=== PATIENT | male | born 1985 | race Caucasian/White ===

== ENCOUNTER 2023-05-14 16:33 | Inpatient (IN) | payer MEDICARE, SELFPAY ==
[2023-05-14 16:42] VITALS: BP 135/78; PULSE 82; RESP 18; TEMP 36.9; O2SAT 100; BMI 25.3
--- NOTE | 2023-05-14 16:43 | ED_ITS ---
HPI - General Adult General Chief complaint: Recheck/Abnormal Lab/Rx Stated complaint: Abnormal labs/low sodium Time Seen by Provider: 05/14/23 18:00 Source: other ([facility]) Mode of arrival: ambulatory Limitations: altered mental status History of Present Illness HPI narrative: Patient mentally challenged with history of schizophrenia came from long-term for low sodium of 125. Patient had low sodium on 04/27 recheck yesterday was 125 no active complaints no change in mental status patient not drinking more water than usual no history of hyponatremia in the past patient is on Trileptal, Haldol, Cogentin and Zyprexa and Depakote Related Data Home Medications Medication Instructions Recorded Confirmed docusate sodium 100 mg capsule 200 mg PO BEDTIME 05/13/23 05/14/23 (Colace) acetaminophen 500 mg tablet 1,000 mg PO Q6H PRN PAIN OR FEVER 05/14/23 05/14/23 (Tylenol Extra Strength) benztropine 1 mg tablet 1 mg PO BID 05/14/23 05/14/23 clonazepam 0.5 mg tablet 0.5 mg PO BID 05/14/23 05/14/23 clonazepam 0.5 mg tablet 0.5 mg PO DAILY MRX1 PRN Agitation 05/14/23 05/14/23 divalproex 500 mg tablet,delayed 500 mg PO BEDTIME 05/14/23 05/14/23 release guaifenesin 100 mg/5 mL oral liquid 200 mg PO Q6H PRN Cough 05/14/23 05/14/23 haloperidol lactate 2 mg/mL oral 2 mg PO DAILY@1600 05/14/23 05/14/23 concentrate haloperidol lactate 2 mg/mL oral 4 mg PO BID 05/14/23 05/14/23 concentrate olanzapine 20 mg tablet 20 mg PO BID 05/14/23 05/14/23 oxcarbazepine 600 mg tablet 600 mg PO BID 05/14/23 05/14/23 polyethylene glycol 3350 17 gram 17 g PO BEDTIME 05/14/23 05/14/23 oral powder packet (Miralax) Allergies Allergy/AdvReac Type Severity Reaction Status Date / Time No Known Allergies Allergy Verified 05/14/23 16:41 Review of Systems 2 Review of Systems: Yes all other systems are reviewed and are negative PMFSH Past Medical History Medical History Impulsive personality disorder Anxiety Autism Schizophrenia Social History Social History Patient Tobacco Use Status: Never used Tobacco Smoked in Last 30 Days: No Use of substances other than those prescribed or required for medical reasons: No Advance Directives: No Advance Directives Information Provided: No Nutrition Risks: No Nutritional Risk Physical Exam ED Vital Signs: Vital Signs - 24 hr 05/14/23 16:42 05/14/23 18:21 05/14/23 19:44 Temperature 98.5 F 98.4 F 97.6 F Pulse Rate 82 82 95 Respiratory Rate 18 16 17 Blood Pressure 135/78 137/85 141/86 H Pulse Oximetry 100 98 100 Oxygen Delivery Method Room Air Room Air Room Air BMI result Body Mass Index 25.3 Appearance: Alert. And awake mentally challenged. No acute distress. Eyes: PERRLA, No Nystagmus ENT: Pharynx normal. Oral Mucosa moist Neck: Normal inspection. Neck supple. CVS: Normal heart rate and rhythm. Pulses normal. Respiratory: No respiratory distress. Equal air entry bilateral, no wheezing/rales/rhonchi Abdomen: Soft and nontender. Bowel sounds are present, no mass palpable, no CVA tenderness Skin: Skin warm and dry. Normal skin color. Normal skin turgor. Extremities: No lower extremity edema. No calf tenderness Neuro: Alert and awake mentally challenged. No motor deficit. No sensory deficit.No cerebellar signs , cranial nerves II-XII intact Course Course Course Narrative: RME performed by Eryn Ghosh PA-C. Patient is a 37 year old assigned male at presenting to the emergency department with low sodium. Labs ordered. Patient placed back in the waiting room pending room availability and results. Medications Administered Generic Name Dose Route Start Last Admin Trade Name Freq PRN Reason Stop Dose Admin Benztropine Mesylate 1 mg 05/14/23 21:00 05/14/23 21:32 Benztropine Mesylate 1 Mg Tablet PO 1 mg BID MARIA ESTHER Administration Clonazepam 0.5 mg 05/14/23 21:00 05/14/23 21:33 Clonazepam 0.5 Mg Tablet PO 0.5 mg BID MARIA ESTHER Administration Divalproex Sodium 500 mg 05/14/23 21:00 05/14/23 21:33 Divalproex Sodium 500 Mg Tablet.Dr PO 500 mg BEDTIME MARIA ESTHER Administration Docusate Sodium 200 mg 05/14/23 21:00 05/14/23 21:32 Docusate Sodium 100 Mg Capsule PO 200 mg BEDTIME MARIA ESTHER Administration Enoxaparin Sodium 40 mg 05/14/23 20:00 05/14/23 21:31 Enoxaparin Sodium 40 Mg/0.4 Ml Syringe SUBCUT 40 mg Q24H MARIA ESTHER Administration Haloperidol Lactate 4 mg 05/14/23 21:00 05/14/23 21:30 Haloperidol Lactate Oral Conc 10 Mg/5 Ml Oral.Conc PO 4 mg BID MARIA ESTHER Administration Olanzapine 20 mg 05/14/23 21:00 05/14/23 21:32 Olanzapine 10 Mg Tablet PO 20 mg BID MARIA ESTHER Administration Polyethylene Glycol 17 gm 05/14/23 21:00 05/14/23 21:32 Polyethylene Glycol 3350 17 Gm Powd.Pack PO 17 gm BEDTIME MARIA ESTHER Administration Sodium Chloride 3 ml 05/15/23 00:00 05/14/23 23:02 0.9 % Sodium Chloride Flush 3 Ml Syringe IVFLUSH 3 ml QSHIFT MARIA ESTHER Administration Discontinued Medications Generic Name Dose Route Start Last Admin Trade Name Freq PRN Reason Stop Dose Admin Oxcarbazepine 450 mg 05/14/23 19:59 05/14/23 21:32 Oxcarbazepine 150 Mg Tablet PO 05/14/23 20:00 450 mg ONCE ONE Administration Medical Decision Making Medical Decision Making [facility] Narrative: Patient with acute hyponatremia asymptomatic workup showed SIADH secondary to oxcarbazepine patient also on Depakote and Haldol. [place]ig[place] level is low. Will admit patient for SIADH treatment with fluid restriction Differential Diagnosis Differential Diagnoses: The differential diagnosis associated with the presentation includes Hyponatremia Admission/Observation Consideration of admission/observation: Escalation of care including admission/observation considered Consult Healthcare Provider Management of the patient was discussed with: Hospitalist Lab Data [facility] Lab Attestation statement: I reviewed the patient's lab results. 05/14/23 17:07 05/14/23 17:07 Labs: Lab Results 05/14/23 05/14/23 05/14/23 Range/Units 17:07 18:24 19:43 WBC 4.2 L (4.8-10.8) X10*3/uL RBC 3.57 L (4.60-5.80) X10*6/uL Hgb 12.4 L (14.0-18.0) g/dl Hct 34.4 L (42.0-52.0) % MCV 96.4 (80.0-98.0) fL MCH 34.7 H (27.0-33.0) pg MCHC 36.0 (31.0-36.0) g/dl RDW 10.8 L (11.0-16.0) % Plt Count 200 (160-400) X10*3/uL MPV 8.5 L (9.4-12.4) fL Immature Gran % (Auto) 0.2 (0.0-0.4) % Neut % (Auto) 61.5 (45-73) % Lymph % (Auto) 22.4 (20-40) % [place] % (Auto) 14.2 H (2-11) % Eos % (Auto) 1.0 (0-4) % Baso % (Auto) 0.7 (0-2) % Lymph # (Auto) 0.9 L (1.2-4.9) X10*3/uL [place] # (Auto) 0.6 (0.1-1.2) X10*3/uL Eos # (Auto) 0.0 (0.0-0.4) X10*3/uL Baso # (Auto) 0.0 (0.0-0.2) X10*3/uL Abs Immat Gran (auto) 0.01 (0.00-0.03) X10*3/uL Absolute Neuts (auto) 2.6 (2.0-8.3) x10*3/uL Absolute Nucleated RBC 0.000 (0.0-0.012) X10*3/uL Nucleated RBC % (auto) 0.0 (0.0-0.2) /100WBC PT 12.0 (11.1-13.3) SEC INR 1.0 (0.9-1.1) APTT 29.0 (26.0-36.4) SEC Sodium 124 L (135-145) mmol/L Potassium 3.9 (3.3-5.1) mmol/L Chloride 92 L (96-108) mmol/L Carbon Dioxide 24 (22-29) mmol/L Anion Gap 12 (12-20) BUN 11 (9-16) mg/dL Creatinine 0.74 (0.5-1.4) mg/dL Estim Creat Clear Calc 129.6 Estimated GFR > 60 Random Glucose 105 (60-115) mg/dL Osmolality 266 L (281-305) mosm/kg Calcium 9.0 (8.4-10.2) mg/dL Magnesium 2.1 (1.6-2.6) mg/dL Total Bilirubin 0.3 (0.0-1.0) mg/dL AST 17 (5-37) U/L ALT 19 (0-40) U/L Alkaline Phosphatase 66 (39-117) U/L Troponin I High Sens < 2.7 (<3.5-35.0) ng/L Total Protein 7.5 (6.5-8.0) g/dL Albumin 4.6 (3.5-5.0) g/dL TSH 0.81 (0.32-4.0) uIU/mL Urine Color Yellow Urine Appearance Clear Urine pH 8.0 (5.0-9.0) Ur Specific [place] 1.015 (1.005-1.025) Urine Protein Negative (Neg-Trace) mg/dL Urine Glucose (UA) Negative (Negative) mg/dL Urine Ketones Negative (Negative) mg/dL Urine Blood Negative (Negative) Urine Nitrite Negative (Negative) Ur Leukocyte Esterase Negative (Negative) Urine Osmolality 588 (373-1093) mosm/kg Ur Random Sodium 131.0 mmol/L Influenza Type A (PCR) NEGATIVE (Negative) Influenza Type B (PCR) NEGATIVE (Negative) RSV RNA Qual (PCR) NEGATIVE (Negative) SARS-CoV-2 RNA (RT-PCR) NEGATIVE (Negative) Independent Interpretation I performed an independent interpretation of an: EKG Interpretation: Normal sinus rhythm heart rate 83 beats per minute LVH no acute ST T wave changes no acute ischemia Discharge Plan Discharge Clinical Impression: Acute hyponatremia, Syndrome of inappropriate antidiuretic hormone secretion Patient Disposition: Admitted As Inpatient Interventions: Admission Worksheet (ED) Last Done: 05/14/23 21:45 Discharge Date/Time: 05/14/23 22:35
--- NOTE | 2023-05-14 16:44 | ECG_ITS ---
Test Reason : ABNORMAL LAB Blood Pressure : / mmHG Vent. Rate : 083 BPM Atrial Rate : 083 BPM P-R Int : 172 ms QRS Dur : 090 ms QT Int : 362 ms P-R-T Axes : 055 021 046 degrees QTc Int : 425 ms Normal sinus rhythm Minimal voltage criteria for LVH, may be normal variant ( Sokolow-Santillan ) Borderline ECG No previous ECGs available Referred By: Eryn Ghosh Electronically Signed By:LITO MAIER MD
[2023-05-14 17:13] LABS: MANUAL DIFF FLAG NO
[2023-05-14 17:17] LABS: Basophils Percent Auto 0.7 % (0-2); Hematocrit 34.4 % (42.0-52.0); Hemoglobin 12.4 g/dl (14.0-18.0); Imm Gran Abs Auto 0.01 X10*3/uL (0.00-0.03); Imm Gran Pct Auto 0.2 % (0.0-0.4); Lymphocytes Absolute Auto 0.9 X10*3/uL (1.2-4.9); Lymphocytes Percent Auto 22.4 % (20-40); Mean Corpuscular Hemoglobin 34.7 pg (27.0-33.0); Mean Corpuscular Volume 96.4 fL (80.0-98.0); Mean Platelet Volume 8.5 fL (9.4-12.4); Monocytes Absolute Auto 0.6 X10*3/uL (0.1-1.2); Monocytes Percent Auto 14.2 % (2-11); Neutrophils Absolute Auto 2.6 x10*3/uL (2.0-8.3); Neutrophils Percent Auto 61.5 % (45-73); Platelet Count 200 X10*3/uL (160-400); Red Blood Count 3.57 X10*6/uL (4.60-5.80); Red Cell Distribution Width 10.8 % (11.0-16.0); White Blood Count 4.2 X10*3/uL (4.8-10.8)
--- NOTE | 2023-05-14 17:34 | MHC.EDTECH ---
Patient ekg taken and was read by Provider ,blood drawn and rsv/covid swab collected and sent to lab .
[2023-05-14 17:38] LABS: Alanine Aminotransferase 19 U/L (0-40); Albumin Level 4.6 g/dL (3.5-5.0); Alkaline Phosphatase 66 U/L (39-117); Anion Gap 12 (12-20); Aspartate Amino Transferase 17 U/L (5-37); Bilirubin Total 0.3 mg/dL (0.0-1.0); Blood Urea Nitrogen 11 mg/dL (9-16); Carbon Dioxide 24 mmol/L (22-29); Chloride 92 mmol/L (96-108); Creatinine Clr Calc Pharmacy 129.6; Estimated Glomerular Filt Rate > 60; Glucose Random 105 mg/dL (60-115); Magnesium 2.1 mg/dL (1.6-2.6); Potassium 3.9 mmol/L (3.3-5.1); Sodium 124 mmol/L (135-145); Total Protein 7.5 g/dL (6.5-8.0)
[2023-05-14 17:48] LABS: Troponin-I High Sensitivity < 2.7 ng/L (<3.5-35.0)
[2023-05-14 17:55] LABS: Influenza A PCR NEGATIVE (Negative); Influenza B PCR NEGATIVE (Negative); Resp Syncy Virus RNA Qual PCR NEGATIVE (Negative); SARS COV2 PCR INHOUSE NEGATIVE (Negative)
[2023-05-14 18:21] VITALS: BP 137/85; PULSE 82; RESP 16; TEMP 36.9; O2SAT 98
[2023-05-14 18:52] LABS: Appearance Urine Clear; Color Urine Yellow; Glucose Urine UA Negative (Negative); Leukocyte Esterase Urine Negative (Negative); Nitrite Urine Negative (Negative); Specific Gravity - Urine 1.015 (1.005-1.025); Urine Blood Negative (Negative); Urine Ketones Negative (Negative); Urine Protein Negative (Neg-Trace)
[2023-05-14 19:15] LABS: Osmolality Urine 588 mosm/kg (373-1093)
--- NOTE | 2023-05-14 19:37 | PHA.MEDREC ---
Pharmacy Consult ? Medication Reconciliation Pharmacy has completed the medication reconciliation. Patient came from residential with medication list. Maty Hardy, RenyD
[2023-05-14 19:44] VITALS: BP 141/86; PULSE 95; RESP 17; TEMP 36.4; O2SAT 100
--- NOTE | 2023-05-14 19:59 | P.HPHOSP_ITS ---
History of Present Illness Date of Service: 05/14/23 Chief Complaint: Low-sodium This is a 37-year-old male with pertinent history of schizophrenia, autistic disorder, personality disorder, generalized anxiety disorder who was sent to the emergency department for evaluation of low sodium. History obtained by caregiver at bedside. The caregiver states that the patient is minimally verbal at baseline. He is unable to provide history. The caregiver states that the patient was found to have low sodium on 04/27. It was repeated yesterday and the sodium was found to be lower and hence the patient was asked to come to the ER. No nausea, vomiting, headache, seizures or, as per the caregiver. Unable to obtain review of systems. In the emergency department, serum sodium found to be 124 Review of Systems 2 Review of Systems: Yes Unobtainable due to mental condition PMFSH Medical History Impulsive personality disorder Anxiety Autism Schizophrenia Pertinent family history: Unable to obtain Social History Smoked in Last 30 Days: No Use of substances other than those prescribed or required for medical reasons: No Advance Directives: No Advance Directives Information Provided: No Meds Allergies Allergy/AdvReac Type Severity Reaction Status Date / Time No Known Allergies Allergy Verified 05/14/23 16:41 Home Medications Medication Instructions Recorded Confirmed Last Taken Type docusate sodium 100 mg capsule 200 mg PO BEDTIME 05/13/23 05/14/23 05/14/23 History (Colace) acetaminophen 500 mg tablet 1,000 mg PO Q6H PRN PAIN OR FEVER 05/14/23 05/14/23 Unknown History (Tylenol Extra Strength) benztropine 1 mg tablet 1 mg PO BID 05/14/23 05/14/23 05/14/23 History clonazepam 0.5 mg tablet 0.5 mg PO BID 05/14/23 05/14/23 05/14/23 History clonazepam 0.5 mg tablet 0.5 mg PO DAILY MRX1 PRN Agitation 05/14/23 05/14/23 Unknown History divalproex 500 mg tablet,delayed 500 mg PO BEDTIME 05/14/23 05/14/23 05/13/23 History release guaifenesin 100 mg/5 mL oral liquid 200 mg PO Q6H PRN Cough 05/14/23 05/14/23 Unknown History haloperidol lactate 2 mg/mL oral 2 mg PO DAILY@1600 05/14/23 05/14/23 05/14/23 History concentrate haloperidol lactate 2 mg/mL oral 4 mg PO BID 05/14/23 05/14/23 05/14/23 History concentrate olanzapine 20 mg tablet 20 mg PO BID 05/14/23 05/14/23 05/14/23 History oxcarbazepine 600 mg tablet 600 mg PO BID 05/14/23 05/14/23 05/14/23 History polyethylene glycol 3350 17 gram 17 g PO BEDTIME 05/14/23 05/14/23 05/13/23 History oral powder packet (Miralax) Physical Exam 2 Vital Signs and Narrative: Vital Signs: Last Vital Signs Temp 97.6 F 05/14/23 19:44 Pulse 95 05/14/23 19:44 Resp 17 05/14/23 19:44 BP 141/86 H 05/14/23 19:44 Pulse Ox 100 05/14/23 19:44 O2 Del Method Room Air 05/14/23 19:44 BMI result Body Mass Index 25.3 Middle-aged male lying in bed in no distress Neck supple, no JVD Regular rate and rhythm, S1-S2 heard Regular breath sounds bilaterally, no wheezing or crackles appreciated Abdomen soft nontender, no guarding, no rigidity Patient is awake, alert and oriented to self, responds appropriately in 1-2 words, minimally verbal at baseline, follows commands. Psych: Normal mood No pedal edema Results Labs 05/14/23 17:07 05/14/23 17:07 Labs: Laboratory Results - last 24 hr 05/14/23 05/14/23 17:07 18:24 MCV 96.4 MCH 34.7 H MCHC 36.0 RDW 10.8 L Plt Count 200 MPV 8.5 L Immature Gran % (Auto) 0.2 Neut % (Auto) 61.5 Lymph % (Auto) 22.4 [place] % (Auto) 14.2 H Eos % (Auto) 1.0 Baso % (Auto) 0.7 Lymph # (Auto) 0.9 L [place] # (Auto) 0.6 Eos # (Auto) 0.0 Baso # (Auto) 0.0 Abs Immat Gran (auto) 0.01 Absolute Neuts (auto) 2.6 Absolute Nucleated RBC 0.000 Nucleated RBC % (auto) 0.0 PT 12.0 INR 1.0 APTT 29.0 Anion Gap 12 Estim Creat Clear Calc 129.6 Estimated GFR > 60 Random Glucose 105 Calcium 9.0 Magnesium 2.1 Total Bilirubin 0.3 AST 17 ALT 19 Alkaline Phosphatase 66 Total Protein 7.5 Albumin 4.6 Urine Color Yellow Urine Appearance Clear Urine pH 8.0 Ur Specific [place] 1.015 Urine Protein Negative Urine Glucose (UA) Negative Urine Ketones Negative Urine Blood Negative Urine Nitrite Negative Ur Leukocyte Esterase Negative Urine Osmolality 588 Ur Random Sodium 131.0 Influenza Type A (PCR) NEGATIVE Influenza Type B (PCR) NEGATIVE RSV RNA Qual (PCR) NEGATIVE SARS-CoV-2 RNA (RT-PCR) NEGATIVE Assessment and Plan (1) Syndrome of inappropriate antidiuretic hormone secretion: Status: Acute Plan This is a 37-year-old male with pertinent history of schizophrenia, autistic disorder, personality disorder, generalized anxiety disorder who was sent to the emergency department for evaluation of low sodium. #. 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 Closely monitor serum sodium. Reducing oxcarbazepine dose. TSH pending #. Schizophrenia / personality disorder / generalized anxiety disorder: Continue home mood stabilizers, reducing oxcarbazepine dose as above. Consulting psych to optimize DVT prophylaxis: Selena Full code Admit as inpatient and will require two night minimum hospital stay for close monitoring of serum sodium, mentation in a patient with autism,schizophrenia (as above), which is not possible in a lesser acute setting. Quality Stroke Does the patient have a stroke diagnosis?: No VTE Prior VTE?: No VTE Risk Level:: Medical - moderate - high VTE Device Contraindication: Treatment Not Indicated VTE Drug Contraindication: N/A - Med Ordered
[2023-05-14 20:08] LABS: Osmolality, Serum 266 mosm/kg (281-305)
[2023-05-14 20:47] LABS: Thyroid Stimulating Hormone 0.81 uIU/mL (0.32-4.0)
[2023-05-14] MEDS: Haloperidol Lactate Oral Conc 10 MG/5 ML ORAL.CONC 4 MG PO (21:30)
[2023-05-14] MEDS: Enoxaparin Sodium 40 MG/0.4 ML SYRINGE SUBCUT (21:31)
[2023-05-14] MEDS: OXcarbazepine 150 MG TABLET 450 MG PO (21:32)
[2023-05-14] MEDS: Benztropine Mesylate 1 MG TABLET PO (21:32)
[2023-05-14] MEDS: Docusate Sodium 100 MG CAPSULE 200 MG PO (21:32)
[2023-05-14] MEDS: polyethylene glycoL 3350 17 GM POWD.PACK PO (21:32)
[2023-05-14] MEDS: OLANZapine 10 MG TABLET 20 MG PO (21:32)
[2023-05-14] MEDS: clonazePAM 0.5 MG TABLET PO (21:33)
[2023-05-14] MEDS: Divalproex Sodium 500 MG TABLET.DR PO (21:33)
[2023-05-14 22:43] VITALS: BP 168/87; PULSE 87; RESP 18; TEMP 36.3; O2SAT 98
[2023-05-14] MEDS: 0.9 % Sodium Chloride Flush 3 ML SYRINGE IVFLUSH (23:02)
[2023-05-15 01:26] VITALS: BMI 24.7
[2023-05-15 03:40] VITALS: BP 124/77; PULSE 81; RESP 18; TEMP 36.2; O2SAT 99
[2023-05-15 06:08] LABS: MANUAL DIFF FLAG NO
[2023-05-15 06:15] LABS: Basophils Percent Auto 0.4 % (0-2); Eosinophils Absolute Auto 0.1 X10*3/uL (0.0-0.4); Eosinophils Percent Auto 1.3 % (0-4); Hematocrit 34.8 % (42.0-52.0); Hemoglobin 12.5 g/dl (14.0-18.0); Imm Gran Abs Auto 0.01 X10*3/uL (0.00-0.03); Imm Gran Pct Auto 0.2 % (0.0-0.4); Lymphocytes Percent Auto 20.6 % (20-40); Mean Corpuscular HGB Conc 35.9 g/dl (31.0-36.0); Mean Corpuscular Hemoglobin 34.9 pg (27.0-33.0); Mean Corpuscular Volume 97.2 fL (80.0-98.0); Mean Platelet Volume 8.8 fL (9.4-12.4); Monocytes Absolute Auto 0.6 X10*3/uL (0.1-1.2); Neutrophils Percent Auto 64.5 % (45-73); Platelet Count 212 X10*3/uL (160-400); Red Blood Count 3.58 X10*6/uL (4.60-5.80); Red Cell Distribution Width 10.5 % (11.0-16.0); White Blood Count 4.6 X10*3/uL (4.8-10.8)
[2023-05-15 06:30] LABS: Anion Gap 13 (12-20); Blood Urea Nitrogen 6 mg/dL (9-16); Calcium 9.1 mg/dL (8.4-10.2); Carbon Dioxide 23 mmol/L (22-29); Chloride 95 mmol/L (96-108); Creatinine Clr Calc Pharmacy 147.6; Estimated Glomerular Filt Rate > 60; Glucose Random 85 mg/dL (60-115); Sodium 127 mmol/L (135-145)
[2023-05-15 07:58] VITALS: BP 127/70; PULSE 86; RESP 18; TEMP 36.2; O2SAT 98
--- NOTE | 2023-05-15 08:29 | PM.EVENT ---
Event Note Date of Service: 05/15/23 Event Note: 37-year-old male with pertinent history of schizophrenia, autistic disorder, personality disorder, generalized anxiety disorder who was sent to the emergency department for evaluation of low sodium. Chart reviewed. Serum Na 124 and 127 Urine Osm inappropriately elevated at 588 Meds noted Suggest: Restrict PO water intake /Hypotonic fluids to 1.2 L per 24 hrs Follow serum sodium Q 6 hourly for now Goal to correct at a rate of 0.5 to 1.0 mmol/L/hr If Na raises rapidly would liberalize PO water intake /Use IV D5W If pNa stays less than 130 in 24 hours, would add UREA powder Shall follow along. Thank you Time Spent With Patient Time: Total time managing care of this patient today ____ minutes.
--- NOTE | 2023-05-15 08:49 | HO.PM.IMPN ---
Subjective Subjective Date of Service: 05/15/23 Interval History: no complaints Physical Exam Vital Signs: Vital Signs: Last Vital Signs Temp 97.1 F 05/15/23 07:58 Pulse 86 05/15/23 07:58 Resp 18 05/15/23 07:58 BP 127/70 05/15/23 07:58 Pulse Ox 98 05/15/23 07:58 O2 Del Method Room Air 05/15/23 07:58 BMI result Body Mass Index 24.7 non verbal, alert, no acute distress Objective Data Active Medications Acetaminophen (Acetaminophen 325 Mg Tablet) 650 mg PO Q6H PRN PRN Reason: Pain, Mild (Pain Scale 1-3) Benztropine Mesylate (Benztropine Mesylate 1 Mg Tablet) 1 mg PO BID [facility] Last Admin: 05/14/23 21:32 Dose: 1 mg Documented By: QUENTIN Clonazepam (Clonazepam 0.5 Mg Tablet) 0.5 mg PO BID [facility] Last Admin: 05/14/23 21:33 Dose: 0.5 mg Documented By: QUENTIN Clonazepam (Clonazepam 0.5 Mg Tablet) 0.5 mg PO DAILY MRX1 PRN PRN Reason: Agitation Divalproex Sodium (Divalproex Sodium 500 Mg Tablet.Dr) 500 mg PO BEDTIME [facility] Last Admin: 05/14/23 21:33 Dose: 500 mg Documented By: QUENTIN Docusate Sodium (Docusate Sodium 100 Mg Capsule) 200 mg PO BEDTIME [facility] Last Admin: 05/14/23 21:32 Dose: 200 mg Documented By: QUENTIN Enoxaparin Sodium (Enoxaparin Sodium 40 Mg/0.4 Ml Syringe) 40 mg SUBCUT Q24H [facility] Last Admin: 05/14/23 21:31 Dose: 40 mg Documented By: QUENTIN Guaifenesin (Guaifenesin 100 Mg/5 Ml Liquid) 10 ml PO Q6H PRN PRN Reason: Cough Haloperidol Lactate (Haloperidol Lactate Oral Conc 10 Mg/5 Ml Oral.Conc) 2 mg PO DAILY@1600 MARIA ESTHER Haloperidol Lactate (Haloperidol Lactate Oral Conc 10 Mg/5 Ml Oral.Conc) 4 mg PO BID [facility] Last Admin: 05/14/23 21:30 Dose: 4 mg Documented By: QUENTIN Melatonin (Melatonin 3 Mg Tablet) 6 mg PO BEDTIME PRN PRN Reason: Insomnia Olanzapine (Olanzapine 10 Mg Tablet) 20 mg PO BID [facility] Last Admin: 05/14/23 21:32 Dose: 20 mg Documented By: QUENTIN Ondansetron HCl (Ondansetron Hcl 4 Mg/2 Ml Vial) 4 mg IVPUSH Q8H PRN PRN Reason: Nausea and Vomiting Oxcarbazepine (Oxcarbazepine 150 Mg Tablet) 450 mg PO BID [facility] Polyethylene Glycol (Polyethylene Glycol 3350 17 Gm Powd.Pack) 17 gm PO BEDTIME [facility] Last Admin: 05/14/23 21:32 Dose: 17 gm Documented By: QUENTIN Sodium Chloride (0.9 % Sodium Chloride Flush 3 Ml Syringe) 3 ml IVFLUSH QSHIFT [facility] Last Admin: 05/14/23 23:02 Dose: 3 ml Documented By: SHANNAN Labs 05/15/23 05:38 05/15/23 05:38 Labs: Laboratory Results - last 24 hr 05/14/23 05/14/23 05/14/23 17:07 18:24 19:43 MCV 96.4 MCH 34.7 H MCHC 36.0 RDW 10.8 L Plt Count 200 MPV 8.5 L Immature Gran % (Auto) 0.2 Neut % (Auto) 61.5 Lymph % (Auto) 22.4 [place] % (Auto) 14.2 H Eos % (Auto) 1.0 Baso % (Auto) 0.7 Lymph # (Auto) 0.9 L [place] # (Auto) 0.6 Eos # (Auto) 0.0 Baso # (Auto) 0.0 Abs Immat Gran (auto) 0.01 Absolute Neuts (auto) 2.6 Absolute Nucleated RBC 0.000 Nucleated RBC % (auto) 0.0 PT 12.0 INR 1.0 APTT 29.0 Anion Gap 12 Estim Creat Clear Calc 129.6 Estimated GFR > 60 Random Glucose 105 Osmolality 266 L Calcium 9.0 Magnesium 2.1 Total Bilirubin 0.3 AST 17 ALT 19 Alkaline Phosphatase 66 Total Protein 7.5 Albumin 4.6 TSH 0.81 Urine Color Yellow Urine Appearance Clear Urine pH 8.0 Ur Specific [place] 1.015 Urine Protein Negative Urine Glucose (UA) Negative Urine Ketones Negative Urine Blood Negative Urine Nitrite Negative Ur Leukocyte Esterase Negative Urine Osmolality 588 Ur Random Sodium 131.0 Influenza Type A (PCR) NEGATIVE Influenza Type B (PCR) NEGATIVE RSV RNA Qual (PCR) NEGATIVE SARS-CoV-2 RNA (RT-PCR) NEGATIVE 05/15/23 05:38 MCV 97.2 MCH 34.9 H MCHC 35.9 RDW 10.5 L Plt Count 212 MPV 8.8 L Immature Gran % (Auto) 0.2 Neut % (Auto) 64.5 Lymph % (Auto) 20.6 [place] % (Auto) 13.0 H Eos % (Auto) 1.3 Baso % (Auto) 0.4 Lymph # (Auto) 1.0 L [place] # (Auto) 0.6 Eos # (Auto) 0.1 Baso # (Auto) 0.0 Abs Immat Gran (auto) 0.01 Absolute Neuts (auto) 3.0 Absolute Nucleated RBC 0.000 Nucleated RBC % (auto) 0.0 PT INR APTT Anion Gap 13 Estim Creat Clear Calc 147.6 Estimated GFR > 60 Random Glucose 85 Osmolality Calcium 9.1 Magnesium Total Bilirubin AST ALT Alkaline Phosphatase Total Protein Albumin TSH Urine Color Urine Appearance Urine pH Ur Specific [place] Urine Protein Urine Glucose (UA) Urine Ketones Urine Blood Urine Nitrite Ur Leukocyte Esterase Urine Osmolality Ur Random Sodium Influenza Type A (PCR) Influenza Type B (PCR) RSV RNA Qual (PCR) SARS-CoV-2 RNA (RT-PCR) Assessment and Plan (1) Syndrome of inappropriate antidiuretic hormone secretion: Status: Acute Plan 37-year-old male with pertinent history of schizophrenia, autistic disorder, personality disorder, generalized anxiety disorder who was sent to the emergency department for evaluation of low sodium acute on chronic hyponatremia due to SIADH na improved appropriately from 124 to 127, continue fluid restriction nephro following monitor bmp multiple psych disorders as above continue klonipin, dpeakore, haldol, zyprexa, trileptal dvt prophylaxis - lovenox full code reason for continued hospitalization:sodium still under 130 Quality Stroke Does the patient have a stroke diagnosis?: No VTE Prior VTE?: No VTE Risk Level:: Medical - moderate - high VTE Device Contraindication: Treatment Not Indicated VTE Drug Contraindication: N/A - Med Ordered
[2023-05-15] MEDS: OXcarbazepine 150 MG TABLET 450 MG PO ×2 (09:25→20:28)
[2023-05-15] MEDS: clonazePAM 0.5 MG TABLET PO ×2 (09:25→20:28)
[2023-05-15] MEDS: Benztropine Mesylate 1 MG TABLET PO ×2 (09:25→20:28)
[2023-05-15] MEDS: OLANZapine 10 MG TABLET 20 MG PO ×2 (09:25→20:28)
[2023-05-15] MEDS: Haloperidol Lactate Oral Conc 10 MG/5 ML ORAL.CONC 4 MG PO ×2 (09:25→20:27)
[2023-05-15] MEDS: 0.9 % Sodium Chloride Flush 3 ML SYRINGE IVFLUSH ×3 (09:29→20:37)
[2023-05-15 15:34] VITALS: BP 114/62; PULSE 92; RESP 18; TEMP 36.8; O2SAT 98
[2023-05-15] MEDS: Haloperidol Lactate Oral Conc 10 MG/5 ML ORAL.CONC 2 MG PO (16:03)
[2023-05-15 19:03] VITALS: BP 119/74; PULSE 83; RESP 18; TEMP 36.6; O2SAT 97
[2023-05-15] MEDS: polyethylene glycoL 3350 17 GM POWD.PACK PO (20:26)
[2023-05-15] MEDS: Docusate Sodium 100 MG CAPSULE 200 MG PO (20:27)
[2023-05-15] MEDS: Divalproex Sodium 500 MG TABLET.DR PO (20:28)
[2023-05-15] MEDS: Enoxaparin Sodium 40 MG/0.4 ML SYRINGE SUBCUT (20:36)
[2023-05-16 03:34] VITALS: BP 124/81; PULSE 84; RESP 16; TEMP 36.6; O2SAT 97
[2023-05-16 06:23] LABS: Hematocrit 36.3 % (42.0-52.0); Hemoglobin 12.5 g/dl (14.0-18.0); Mean Corpuscular HGB Conc 34.4 g/dl (31.0-36.0); Mean Corpuscular Hemoglobin 33.9 pg (27.0-33.0); Mean Corpuscular Volume 98.4 fL (80.0-98.0); Mean Platelet Volume 8.8 fL (9.4-12.4); Platelet Count 220 X10*3/uL (160-400); Red Blood Count 3.69 X10*6/uL (4.60-5.80); Red Cell Distribution Width 11.1 % (11.0-16.0); White Blood Count 3.7 X10*3/uL (4.8-10.8)
[2023-05-16 07:27] LABS: Anion Gap 13 (12-20); Blood Urea Nitrogen 11 mg/dL (9-16); Calcium 9.1 mg/dL (8.4-10.2); Carbon Dioxide 25 mmol/L (22-29); Chloride 97 mmol/L (96-108); Estimated Glomerular Filt Rate > 60; Glucose Fasting 78 mg/dL (60-99); Potassium 4.7 mmol/L (3.3-5.1); Sodium 130 mmol/L (135-145)
[2023-05-16 07:53] VITALS: BP 121/79; PULSE 74; RESP 16; TEMP 36.2; O2SAT 98
--- NOTE | 2023-05-16 09:10 | HO.PM.IMPN ---
Subjective Subjective Date of Service: 05/16/23 Interval History: no complaints Physical Exam Vital Signs: Vital Signs: Last Vital Signs Temp 97.1 F 05/16/23 07:53 Pulse 74 05/16/23 07:53 Resp 16 05/16/23 07:53 BP 121/79 05/16/23 07:53 Pulse Ox 98 05/16/23 07:53 O2 Del Method Room Air 05/16/23 07:53 BMI result Body Mass Index 24.7 non verbal, alert, no acute distress Objective Data Active Medications Acetaminophen (Acetaminophen 325 Mg Tablet) 650 mg PO Q6H PRN PRN Reason: Pain, Mild (Pain Scale 1-3) Benztropine Mesylate (Benztropine Mesylate 1 Mg Tablet) 1 mg PO BID [facility] Last Admin: 05/15/23 20:28 Dose: 1 mg Documented By: SHANNAN Clonazepam (Clonazepam 0.5 Mg Tablet) 0.5 mg PO BID [facility] Last Admin: 05/15/23 20:28 Dose: 0.5 mg Documented By: SHANNAN Clonazepam (Clonazepam 0.5 Mg Tablet) 0.5 mg PO DAILY MRX1 PRN PRN Reason: Agitation Divalproex Sodium (Divalproex Sodium 500 Mg Tablet.Dr) 500 mg PO BEDTIME [facility] Last Admin: 05/15/23 20:28 Dose: 500 mg Documented By: SHANNAN Docusate Sodium (Docusate Sodium 100 Mg Capsule) 200 mg PO BEDTIME [facility] Last Admin: 05/15/23 20:27 Dose: 200 mg Documented By: SHANNAN Enoxaparin Sodium (Enoxaparin Sodium 40 Mg/0.4 Ml Syringe) 40 mg SUBCUT Q24H [facility] Last Admin: 05/15/23 20:36 Dose: 40 mg Documented By: SHANNAN Guaifenesin (Guaifenesin 100 Mg/5 Ml Liquid) 10 ml PO Q6H PRN PRN Reason: Cough Haloperidol Lactate (Haloperidol Lactate Oral Conc 10 Mg/5 Ml Oral.Conc) 2 mg PO DAILY@1600 [facility] Last Admin: 05/15/23 16:03 Dose: 2 mg Documented By: BRADY Haloperidol Lactate (Haloperidol Lactate Oral Conc 10 Mg/5 Ml Oral.Conc) 4 mg PO BID [facility] Last Admin: 05/15/23 20:27 Dose: 4 mg Documented By: SHANNAN Melatonin (Melatonin 3 Mg Tablet) 6 mg PO BEDTIME PRN PRN Reason: Insomnia Olanzapine (Olanzapine 10 Mg Tablet) 20 mg PO BID [facility] Last Admin: 05/15/23 20:28 Dose: 20 mg Documented By: SHANNAN Ondansetron HCl (Ondansetron Hcl 4 Mg/2 Ml Vial) 4 mg IVPUSH Q8H PRN PRN Reason: Nausea and Vomiting Oxcarbazepine (Oxcarbazepine 150 Mg Tablet) 450 mg PO BID [facility] Last Admin: 05/15/23 20:28 Dose: 450 mg Documented By: SHANNAN Polyethylene Glycol (Polyethylene Glycol 3350 17 Gm Powd.Pack) 17 gm PO BEDTIME [facility] Last Admin: 05/15/23 20:26 Dose: 17 gm Documented By: SHANNAN Sodium Chloride (0.9 % Sodium Chloride Flush 3 Ml Syringe) 3 ml IVFLUSH QSHIFT [facility] Last Admin: 05/15/23 20:37 Dose: 3 ml Documented By: SHANNAN Labs 05/16/23 05:42 05/16/23 05:42 Labs: Laboratory Results - last 24 hr 05/16/23 05:42 MCV 98.4 H MCH 33.9 H MCHC 34.4 RDW 11.1 Plt Count 220 MPV 8.8 L Absolute Nucleated RBC 0.000 Nucleated RBC % (auto) 0.0 Anion Gap 13 Estim Creat Clear Calc 123.0 Estimated GFR > 60 Fasting Glucose 78 Calcium 9.1 Assessment and Plan (1) Syndrome of inappropriate antidiuretic hormone secretion: Status: Acute Plan 37-year-old male with pertinent history of schizophrenia, autistic disorder, personality disorder, generalized anxiety disorder who was sent to the emergency department for evaluation of low sodium 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
--- NOTE | 2023-05-16 09:11 | PM.DS ---
DS: Providers Provider Date of Service: 05/16/23 Date of admission: 05/14/23 19:57 Primary care physician: Lewis Horowitz DO, MD Consults: 05/14/23 20:04 Consult to Psychiatry Routine Consulting Provider: Psych Covering Reason for consultation: bipolar 05/15/23 07:09 Consult to Nephrology Routine Consulting Provider: [facility] Reason for consultation: siadh DS: Diagnosis Discharge Diagnosis (1) Syndrome of inappropriate antidiuretic hormone secretion: Status: Acute DS: Summary Hospital Course Hospital Course: from initial hpi: 37-year-old male with pertinent history of schizophrenia, autistic disorder, personality disorder, generalized anxiety disorder who was sent to the emergency department for evaluation of low sodium. History obtained by caregiver at bedside. The caregiver states that the patient is minimally verbal at baseline. He is unable to provide history. The caregiver states that the patient was found to have low sodium on 04/27. It was repeated yesterday and the sodium was found to be lower and hence the patient was asked to come to the ER. No nausea, vomiting, headache, seizures or, as per the caregiver. Unable to obtain review of systems. 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 sodium was 124 on admission, over 48hrs of fluid restriction improved to 130. will be discharged back to long-term on 1200cc/day fluid restriction, should conitnue to monitor. for his multiple psych disorders was continued on klonipin, depakote, haldol, zyprexa, trileptal. Time Attestation Discharge coordination time: Greater than 30 minutes Quality: Safe Use of Opioids Does Pt have an Active Cancer Diagnosis on the Problem List?: No Quality: Stroke Does the patient have a stroke diagnosis?: No Physical Exam Vital Signs: Vital Signs: Last Vital Signs Temp 97.1 F 05/16/23 07:53 Pulse 74 05/16/23 07:53 Resp 16 05/16/23 07:53 BP 121/79 05/16/23 07:53 Pulse Ox 98 05/16/23 07:53 O2 Del Method Room Air 05/16/23 07:53 BMI result Body Mass Index 24.7 non verbal, alert, no acute distress DS: Data Data Completed and Pending Labs on day of discharge: Laboratory Results - last 24 hr 05/16/23 05:42 WBC 3.7 L RBC 3.69 L Hgb 12.5 L Hct 36.3 L MCV 98.4 H MCH 33.9 H MCHC 34.4 RDW 11.1 Plt Count 220 MPV 8.8 L Absolute Nucleated RBC 0.000 Nucleated RBC % (auto) 0.0 Sodium 130 L Potassium 4.7 Chloride 97 Carbon Dioxide 25 Anion Gap 13 BUN 11 Creatinine 0.78 Estim Creat Clear Calc 123.0 Estimated GFR > 60 Fasting Glucose 78 Calcium 9.1 Discharge Plan Discharge Anticipated Discharge Date/Time: 05/16/23 09:01 Patient Disposition: Xfer Other Discharge Diagnosis: siadh, hyponatremia Referrals: Lewis Horowitz DO, MD [Primary Care Provider] - 1 Week Discharge Medications: Continued polyethylene glycol 3350 [Miralax] 17 gram Powder In Packet 17 g PO BEDTIME clonazepam 0.5 mg tablet 0.5 mg PO DAILY MRX1 PRN (Reason: Agitation) clonazepam 0.5 mg tablet 0.5 mg PO BID divalproex 500 mg tablet,delayed release (DR/EC) 500 mg PO BEDTIME acetaminophen [Tylenol Extra Strength] 500 mg Tablet 1,000 mg PO Q6H PRN (Reason: PAIN OR FEVER) guaifenesin 100 mg/5 mL Liquid 200 mg PO Q6H PRN (Reason: Cough) docusate sodium [Colace] 100 mg Capsule 200 mg PO BEDTIME oxcarbazepine 600 mg tablet 600 mg PO BID olanzapine 20 mg tablet 20 mg PO BID haloperidol lactate 2 mg/mL concentrate 2 mg PO DAILY@1600 haloperidol lactate 2 mg/mL concentrate 4 mg PO BID benztropine 1 mg tablet 1 mg PO BID Discharge Orders: Discharge Order (Routine); Ordered 05/16/23 Ordered By: Chad Bell Diet: 1200cc fluid restrict Activity on Discharge: As tolerated Stand Alone Forms: Patient Portal Discharge page Care Plan Goals: avoid hyponatremia Health Concerns: hyponatremia Plan of Treatment: fluid restriction Assessment: see above
[2023-05-16] MEDS: clonazePAM 0.5 MG TABLET PO (09:47)
[2023-05-16] MEDS: OXcarbazepine 150 MG TABLET 450 MG PO (09:47)
[2023-05-16] MEDS: Benztropine Mesylate 1 MG TABLET PO (09:47)
[2023-05-16] MEDS: OLANZapine 10 MG TABLET 20 MG PO (09:47)
[2023-05-16] MEDS: Haloperidol Lactate Oral Conc 10 MG/5 ML ORAL.CONC 4 MG PO (09:48)
--- NOTE | 2023-05-16 10:09 | MHC.CM.PN ---
Addendum entered by Chanelle Alcala 05/16/23 11:10: CM RECEIVED A RETURN CALL FROM TRAFFIC SIGN ERECTION SUPERVISOR, ANIYA, SHE REPORTS THE PT HAS A GUARDIAN HOWEVER SHE HAS ALREADY INFORMED THEM AND DDS OF THE ADMISSION AND DISCHARGE. SHE REPORTS THEY HAVE A NURSE THAT OVERSEES THE [facility] AND HE HAS NO OUTSIDE SERVICES SHE REPORTS THE IS STAFFED 14/12 SHE IS AWARE THE PT DISCHARGED TODAY AND THAT THE DCS/INSTRUCTIONS WERE SENT WITH A STAFF MEMBER SHE DID PROVIDE AN EMAIL FOR ANY FURTHER INFORMATION TO BE SENT TO HER [email or web address] Original Note: PT CLEARED TO DC TODAY CM MET WITH PT AND [facility] STAFF MEMBER AT BEDSIDE PT IS INDEPENDENT WITH CARE AT BASELINE PER STAFF MEMBER, TRAFFIC SIGN ERECTION SUPERVISOR, ANIYA COLEY WOULD HAVE THE MOST ACCURATE INFORMATION CM ATTEMPTED TO REACH ANIYA [phone] A VM MESSAGE WAS LEFT REQUESTING A RETURN CALL PT WILL DC BACK TO THE [facility] TODAY VIA STAFF MEDICARE RIGHTS DELIVERED
== END 2023-05-16 10:15 | disposition other institution (70) | DRG 644 ==
LOC: HO.ED 20:05 → HO.EDOVER 20:21 → HO.S3 21:14
PROVIDERS: Physician Assistant Medical; Admitting Provider Student in an Organized Health Care Education/Training Program; Emergency Provider Internal Medicine; PCP Internal Medicine; Visit Provider Internal Medicine
DX: E22.2 Syndrome of inappropriate secretion of antidiuretic hormone (principal); F84.0 Autistic disorder; Z20.822 Contact with and (suspected) exposure to COVID-19; T42.1X5A Adverse effect of iminostilbenes, initial encounter; F20.9 Schizophrenia, unspecified; F41.1 Generalized anxiety disorder; Z79.899 Other long term (current) drug therapy
CPT/HCPCS: 0241U; 36415; 80048; 80053; 81003; 83735; 83930; 83935; 84300; 84443; 84484; 85025; 85027; 85610; 85730; 93005; 99285; J1650

== ENCOUNTER → 2023-05-14 16:44 | Outpatient (BNV) | payer MEDICARE, SELFPAY | PROVIDERS: Admitting Provider Student in an Organized Health Care Education/Training Program; Emergency Provider Internal Medicine; PCP Internal Medicine; Visit Provider Internal Medicine Cardiovascular Disease | DX: E22.2 Syndrome of inappropriate secretion of antidiuretic hormone (principal) | CPT/HCPCS: 93010 ==

== ENCOUNTER → 2023-05-14 17:05 | Outpatient (BNV) | payer MEDICARE, SELFPAY | PROVIDERS: Emergency Provider Internal Medicine; PCP Internal Medicine; Visit Provider Student in an Organized Health Care Education/Training Program | DX: E22.2 Syndrome of inappropriate secretion of antidiuretic hormone (principal); F84.0 Autistic disorder | CPT/HCPCS: 99222; 99232; 99239 ==

== ENCOUNTER 2023-05-31 15:31 | Outpatient (AMB) | payer MEDICARE, SELFPAY ==
--- NOTE | 2023-05-31 15:35 | HO.NEPHOV_ITS ---
HPI HPI Comments History of Present Illness Details 37-year-old male with pertinent history of schizophrenia, autistic disorder, personality disorder, generalized anxiety disorder has been referred due to hyponatremia. He was hospitalized 2 weeks ago with hyponatremia. Serum sodium was 124 which has gradually gotten to 130 and he was discharged. Recent sodium was around 130 millimoles. He was accompanied by his caregiver [facility] Medical History Impulsive personality disorder Anxiety Autism Schizophrenia Social History Household Members: Other Household Members Other:: prison Housing: Other Housing Other:: prison Unable to assess alcohol history related to: Unable to respond Patient Tobacco Use Status: Never used Tobacco service: No Vital Signs 05/31/23 15:37 Height 5 ft 9 in Weight 171 lb BMI 25.2 BP 115/80 Blood Pressure Location Lt brachial Position Sitting Pulse 79 Pulse Source Pulse Oximeter Pulse Oximetry (%) 98 Oxygen Delivery Method Room Air Physical Exam Vital Signs: Last Vital Signs Pulse 79 05/31/23 15:37 BP 115/80 05/31/23 15:37 Pulse Ox 98 05/31/23 15:37 Oxygen Delivery Method Room Air 05/31/23 15:37 BMI result Body Mass Index 25.2 Flat affect. Does not verbalize. Neck is supple no JVD. Lungs clear. Heart S1-S2 heard no gallop. Abdomen soft nontender. Neuro alert and awake. No asterixis. Extremities no edema. Assessment & Plan Assessment & Plan (1) Syndrome of inappropriate antidiuretic hormone secretion: Code(s): E22.2 - Syndrome of inappropriate secretion of antidiuretic hormone Plan: Most likely due to medications. Goal is met in serum sodium by more than 130 millimoles. Keep on oral free water restriction of 1.2 L per 24 hours. If serum sodium drops less than 130 millimoles I would consider adding urea powder 15 g p.o. b.i.d.. Monitor serum sodium every month for the next 6 months Coding Level of Care Code New Pt Level 4 (58097) Diagnoses Syndrome of inappropriate antidiuretic hormone secretion E22.2 Results Reviewed Nephrology Results: Hgb 12.5 g/dl (14.0-18.0) L 05/16/23 WBC 3.7 X10*3/uL (4.8-10.8) L 05/16/23 Plt Count 220 X10*3/uL (160-400) 05/16/23 Sodium 130 mmol/L (135-145) L 05/16/23 Potassium 4.7 mmol/L (3.3-5.1) 05/16/23 Chloride 97 mmol/L (96-108) 05/16/23 Carbon Dioxide 25 mmol/L (22-29) 05/16/23 BUN 11 mg/dL (9-16) 05/16/23 Creatinine 0.78 mg/dL (0.5-1.4) 05/16/23 Calcium 9.1 mg/dL (8.4-10.2) 05/16/23 Urine Protein Negative mg/dL (Neg-Trace) 05/14/23
[2023-05-31 15:37] VITALS: BP 115/80; PULSE 79; O2SAT 98; BMI 25.2
== END 2023-05-31 16:00 | disposition home or self-care (01) ==
PROVIDERS: PCP Internal Medicine; Visit Provider Internal Medicine Hypertension Specialist
DX: E22.2 Syndrome of inappropriate secretion of antidiuretic hormone (principal)
CPT/HCPCS: 99214

== ENCOUNTER → 2023-05-31 15:31 | Outpatient (BNVA) | payer MEDICARE, SELFPAY | PROVIDERS: PCP Internal Medicine; Visit Provider Internal Medicine Hypertension Specialist | DX: E22.2 Syndrome of inappropriate secretion of antidiuretic hormone (principal) | CPT/HCPCS: 99212 ==

== ENCOUNTER 2023-08-30 11:13 | Outpatient (AMB) | payer MEDICARE, MEDICAID, SELFPAY ==
[2023-08-30 11:21] VITALS: BP 128/80; PULSE 86; O2SAT 97; BMI 24.8
--- NOTE | 2023-08-30 11:21 | HO.NEPHOV_ITS ---
HPI HPI Comments History of Present Illness Details 37-year-old male with pertinent history of schizophrenia, autistic disorder, personality disorder, generalized anxiety disorder has been referred due to hyponatremia. He was hospitalized with hyponatremia. Serum sodium was 124 which has gradually gotten to 130 and he was discharged. Recent sodium was around 130 millimoles. He was accompanied by his caregiver [facility] Medical History Impulsive personality disorder Anxiety Autism Schizophrenia Social History Household Members: Other Household Members Other:: penitentiary Housing: Other Housing Other:: penitentiary Unable to assess alcohol history related to: Unable to respond Patient Tobacco Use Status: Never used Tobacco service: No Vital Signs 08/30/23 11:21 Height 5 ft 9 in Weight 168 lb BMI 24.8 BP 128/80 Blood Pressure Location Lt brachial Position Sitting Pulse 86 Pulse Source Pulse Oximeter Pulse Oximetry (%) 97 Oxygen Delivery Method Room Air Physical Exam Vital Signs: Last Vital Signs Pulse 86 08/30/23 11:21 BP 128/80 08/30/23 11:21 Pulse Ox 97 08/30/23 11:21 Oxygen Delivery Method Room Air 08/30/23 11:21 BMI result Body Mass Index 24.8 Flat affect. Does not verbalize. Neck is supple no JVD. Lungs clear. Heart S1-S2 heard no gallop. Abdomen soft nontender. Neuro alert and awake. No asterixis. Extremities no edema. Assessment & Plan Assessment & Plan (1) Syndrome of inappropriate antidiuretic hormone secretion: Code(s): E22.2 - Syndrome of inappropriate secretion of antidiuretic hormone Plan: Most likely due to medications. Goal is met in serum sodium by more than 130 millimoles. Keep on oral free water restriction of 1.2 L per 24 hours. If serum sodium drops less than 130 millimoles I would consider adding urea powder 15 g p.o. b.i.d.. Monitor serum sodium every month for the next 6 months Labs ordered today Orders: Orders Basic Metabolic Panel Today E22.2 - Syndrome of inappropriate secretion of antidiuretic hormone Coding Level of Care Code Est Pt Level 4 (38247) Diagnoses Syndrome of inappropriate antidiuretic hormone secretion E22.2 Results Reviewed Nephrology Results: Hgb 12.5 g/dl (14.0-18.0) L 05/16/23 WBC 3.7 X10*3/uL (4.8-10.8) L 05/16/23 Plt Count 220 X10*3/uL (160-400) 05/16/23 Sodium 130 mmol/L (135-145) L 05/16/23 Potassium 4.7 mmol/L (3.3-5.1) 05/16/23 Chloride 97 mmol/L (96-108) 05/16/23 Carbon Dioxide 25 mmol/L (22-29) 05/16/23 BUN 11 mg/dL (9-16) 05/16/23 Creatinine 0.78 mg/dL (0.5-1.4) 05/16/23 Calcium 9.1 mg/dL (8.4-10.2) 05/16/23 Urine Protein Negative mg/dL (Neg-Trace) 05/14/23
== END 2023-08-30 11:37 | disposition home or self-care (01) ==
PROVIDERS: PCP Internal Medicine; Visit Provider Internal Medicine Hypertension Specialist
DX: E22.2 Syndrome of inappropriate secretion of antidiuretic hormone (principal)
CPT/HCPCS: 99214

== ENCOUNTER → 2023-08-30 11:13 | Outpatient (BNVA) | payer MEDICARE, SELFPAY | PROVIDERS: PCP Internal Medicine; Visit Provider Internal Medicine Hypertension Specialist ==

== ENCOUNTER 2023-08-30 11:42 | Outpatient (REF) | payer MEDICARE, MEDICAID, SELFPAY ==
[2023-08-30 13:33] LABS: Anion Gap 9 (12-20); Blood Urea Nitrogen 14 mg/dL (9-16); Calcium 9.2 mg/dL (8.4-10.2); Carbon Dioxide 25 mmol/L (22-29); Chloride 99 mmol/L (96-108); Estimated Glomerular Filt Rate > 60; Glucose Random 91 mg/dL (60-115); Potassium 4.3 mmol/L (3.3-5.1); Sodium 129 mmol/L (135-145)
== END 2023-08-30 11:43 | disposition home or self-care (01) ==
LOC: HO.10HDL 11:42
PROVIDERS: Visit Provider Internal Medicine Hypertension Specialist
DX: E22.2 Syndrome of inappropriate secretion of antidiuretic hormone (principal)
CPT/HCPCS: 36415; 80048; 99212

== ENCOUNTER 2024-02-22 09:16 | Outpatient (AMB) | payer MEDICARE, MEDICAID, SELFPAY ==
--- NOTE | 2024-02-22 09:41 | HO.NEPHOV ---
Vital Signs 02/22/24 09:42 Height 5 ft 9 in Weight 166 lb BMI 24.5 BP 112/74 Blood Pressure Location Lt brachial Position Sitting Pulse 84 Pulse Source Pulse Oximeter Pulse Oximetry (%) 98 Oxygen Delivery Method Room Air Intake Visit Reasons: 6 mon follow up/ CONF Bobbin Winder Required: No Accompanied by: [employer]er Allergies No Known Allergies Allergy (Verified 02/22/24 09:44) Medication List - Last Reconciled 02/22/24 by Washington Heath MD acetaminophen (Tylenol Extra Strength) 1,000 mg PO Q6H PRN benztropine 1 mg PO BID clonazepam 0.5 mg PO DAILY PRN docusate sodium (Colace) 200 mg PO BEDTIME guaifenesin 200 mg PO Q6H PRN haloperidol lactate 2 mg PO DAILY@1600 haloperidol lactate 4 mg PO BID olanzapine 20 mg PO BID oxcarbazepine 600 mg PO BID HPI Comments Details: 37-year-old male with pertinent history of schizophrenia, autistic disorder, personality disorder, generalized anxiety disorder has been referred due to hyponatremia. He was hospitalized with hyponatremia. Serum sodium was 124 which has gradually gotten to 130 and he was discharged. Recent sodium was around 129 millimoles. He was accompanied by his caregiver [facility] Medical History Impulsive personality disorder Anxiety Autism Schizophrenia Social History Household Members: Other Household Members Other:: senior care Housing: Other Housing Other:: senior care Unable to assess alcohol history related to: Unable to respond Patient Tobacco Use Status: Never used Tobacco service: No Physical Exam Vital Signs: Last Vital Signs Pulse 84 02/22/24 09:42 BP 112/74 02/22/24 09:42 Pulse Ox 98 02/22/24 09:42 Oxygen Delivery Method Room Air 02/22/24 09:42 BMI result Body Mass Index 24.5 Flat affect. Does not verbalize. Neck is supple no JVD. Lungs clear. Heart S1-S2 heard no gallop. Abdomen soft nontender. Neuro alert and awake. No asterixis. Extremities no edema. Results Reviewed Nephrology Results: Hgb 12.5 g/dl (14.0-18.0) L 05/16/23 WBC 3.7 X10*3/uL (4.8-10.8) L 05/16/23 Plt Count 220 X10*3/uL (160-400) 05/16/23 Sodium 129 mmol/L (135-145) L 08/30/23 Potassium 4.3 mmol/L (3.3-5.1) 08/30/23 Chloride 99 mmol/L (96-108) 08/30/23 Carbon Dioxide 25 mmol/L (22-29) 08/30/23 BUN 14 mg/dL (9-16) 08/30/23 Creatinine 0.73 mg/dL (0.5-1.4) 08/30/23 Calcium 9.2 mg/dL (8.4-10.2) 08/30/23 Urine Protein Negative mg/dL (Neg-Trace) 05/14/23 Assessment & Plan Assessment & Plan (1) Syndrome of inappropriate antidiuretic hormone secretion: Code(s): E22.2 - Syndrome of inappropriate secretion of antidiuretic hormone Category: Medical Plan: Most likely due to medications. Goal is met in serum sodium by more than 130 millimoles. Keep on oral free water restriction of 1.2 L per 24 hours. If serum sodium drops less than 130 millimoles I would consider adding urea powder 15 g p.o. b.i.d.. Monitor serum sodium every month for the next 6 months Labs ordered today Orders: Orders Basic Metabolic Panel Today E22.2 - Syndrome of inappropriate secretion of antidiuretic hormone Coding Level of Care Code Est Pt Level 4 (58197) Diagnoses Syndrome of inappropriate antidiuretic hormone secretion E22.2
[2024-02-22 09:42] VITALS: BP 112/74; PULSE 84; O2SAT 98; BMI 24.5
== END 2024-02-22 10:02 | disposition home or self-care (01) ==
PROVIDERS: PCP Internal Medicine; Visit Provider Internal Medicine Hypertension Specialist
DX: E22.2 Syndrome of inappropriate secretion of antidiuretic hormone (principal)
CPT/HCPCS: 99213

== ENCOUNTER → 2024-02-22 09:16 | Outpatient (BNVA) | payer MEDICARE, SELFPAY | PROVIDERS: PCP Internal Medicine; Visit Provider Internal Medicine Hypertension Specialist | DX: E22.2 Syndrome of inappropriate secretion of antidiuretic hormone (principal) | CPT/HCPCS: 99212 ==

== ENCOUNTER 2024-02-22 10:05 | Outpatient (REF) | payer MEDICARE, SELFPAY ==
[2024-02-22 11:25] LABS: Anion Gap 10 (12-20); Blood Urea Nitrogen 12 mg/dL (9-16); Calcium 9.4 mg/dL (8.4-10.2); Carbon Dioxide 25 mmol/L (22-29); Chloride 96 mmol/L (96-108); Estimated Glomerular Filt Rate > 60; Glucose Random 85 mg/dL (60-115); Potassium 4.5 mmol/L (3.3-5.1); Sodium 126 mmol/L (135-145)
== END 2024-02-22 10:06 | disposition home or self-care (01) ==
LOC: HO.10HDL 10:05
PROVIDERS: Visit Provider Internal Medicine Hypertension Specialist
DX: E22.2 Syndrome of inappropriate secretion of antidiuretic hormone (principal); F20.9 Schizophrenia, unspecified; F84.0 Autistic disorder; Z79.899 Other long term (current) drug therapy
CPT/HCPCS: 36415; 80048; 99212

== ENCOUNTER 2024-09-05 15:59 | Outpatient (AMB) | payer MEDICARE, MEDICAID, SELFPAY ==
[2024-09-05 15:58] VITALS: BP 128/90; PULSE 79; O2SAT 100; BMI 24.4
--- NOTE | 2024-09-05 15:58 | HO.NEPHOV_ITS ---
Vital Signs 09/05/24 15:58 Height 5 ft 9 in Weight 165 lb 8 oz BMI 24.4 BP 128/90 H Blood Pressure Location Rt brachial Position Sitting Pulse 79 Pulse Source Pulse Oximeter Pulse Oximetry (%) 100 Oxygen Delivery Method Room Air Intake Visit Reasons: Acute hyponatremia/ Conf Allergies No Known Allergies Allergy (Verified 09/05/24 16:02) Medication List - Last Reconciled 09/05/24 by Washington Heath MD acetaminophen (Tylenol Extra Strength) 1,000 mg PO Q6H PRN benztropine 1 mg PO BID clonazepam 0.5 mg PO DAILY PRN docusate sodium (Colace) 200 mg PO BEDTIME guaifenesin 200 mg PO Q6H PRN haloperidol lactate 2 mg PO DAILY@1600 haloperidol lactate 4 mg PO BID olanzapine 20 mg PO BID oxcarbazepine 600 mg PO BID HPI Comments Details: 37-year-old male with pertinent history of schizophrenia, autistic disorder, personality disorder, generalized anxiety disorder has been referred due to hyponatremia. He was hospitalized with hyponatremia. Serum sodium was 124 which has gradually gotten to 130 and he was discharged. Recent sodium was around 129 to 130 millimoles. He was accompanied by his caregiver [facility] Medical History Impulsive personality disorder Anxiety Autism Schizophrenia Social History Household Members: Other Household Members Other:: [facility] Housing: Other Housing Other:: [facility] Unable to assess alcohol history related to: Unable to respond Patient Tobacco Use Status: Never used Tobacco service: No Physical Exam Vital Signs: Last Vital Signs Pulse 79 09/05/24 15:58 BP 128/90 H 09/05/24 15:58 Pulse Ox 100 09/05/24 15:58 Oxygen Delivery Method Room Air 09/05/24 15:58 BMI result Body Mass Index 24.4 Flat affect. Does not verbalize. Neck is supple no JVD. Lungs clear. Heart S1-S2 heard no gallop. Abdomen soft nontender. Neuro alert and awake. No asterixis. Extremities no edema. Results Reviewed Nephrology Results: Hgb 12.5 g/dl (14.0-18.0) L 05/16/23 WBC 3.7 X10*3/uL (4.8-10.8) L 05/16/23 Plt Count 220 X10*3/uL (160-400) 05/16/23 Sodium 126 mmol/L (135-145) L 02/22/24 Potassium 4.5 mmol/L (3.3-5.1) 02/22/24 Chloride 96 mmol/L (96-108) 02/22/24 Carbon Dioxide 25 mmol/L (22-29) 02/22/24 BUN 12 mg/dL (9-16) 02/22/24 Creatinine 0.76 mg/dL (0.5-1.4) 02/22/24 Calcium 9.4 mg/dL (8.4-10.2) 02/22/24 Urine Protein Negative mg/dL (Neg-Trace) 05/14/23 Assessment & Plan Assessment & Plan (1) Syndrome of inappropriate antidiuretic hormone secretion: Code(s): E22.2 - Syndrome of inappropriate secretion of antidiuretic hormone Category: Medical Plan: Most likely due to medications. Goal is to maintain serum sodium by more than 130 millimoles. Keep on oral free water restriction of 1 L per 24 hours. If serum sodium drops less than 130 millimoles I would consider adding urea powder 15 g p.o. b.i.d.. Monitor serum sodium every month for the next 6 months Coding Level of Care Code Est Pt Level 4 (54436) Diagnoses Syndrome of inappropriate antidiuretic hormone secretion E22.2
--- OUTSIDE RECORDS SUMMARY | 2024-09-05 18:52 | XMS_ITS | Clinical Summary ---
Author Organization [address] Address [address] [place] [phone] Phone Care Team Providers Care Yardage Caller Name Role Phone Lewis Horowitz DO Primary Care Provider [phone] Allergies No known active allergies Medications No known medications Encounters Date Type Department Care Team Description 08/02/2024 8:30 AM EDT Office Visit Orthopedic Surgery - [facility] [address] [place] [phone] Donny Mendes DPM Ingrowing nail (Primary Dx); Other nail disorders; Paronychia of fifth toe of left foot from Last 3 Months Surgical History Surgery Date Site/Laterality Comments OTHER SURGICAL HISTORY PROCEDURE:TREATMENT FISTULA ANAL;COMMENT:Several years ago - exact date not known Medical History Medical History Date Comments Schizophrenia, chronic condi tion ([facility] V24, [facility] V28) DX:Schizophrenia, chronic co ndition ([facility]) Hemorrhoids DX:Hemorrhoids Anemia DX:Anemia Constipation DX:Constipation; COMMENT:Chronic Family History Relation Name Status Comments Mother Alive Social History Tobacco Use Types Packs/Day Years Used Date Smoking Tobacco: Never Smokeless Tobacco: Never Alcohol Use Standard Drinks/Week Comments No 0 (1 standard drink = 0.6 oz pur e alcohol) Sex and Gender Information Value Date Recorded Sex Assigned at Not on file Legal Sex Male 4:52 AM EST Gender Identity Not on file Sexual Orientation Not on file Obstetrics History Last Filed Vital Signs Vital Sign Reading Time Taken Comments Blood Pressure - - Pulse - - Temperature - - Respiratory Rate - - Oxygen Saturation - - Inhaled Oxygen Concentration - - Weight 74.4 kg (164 lb) 08/02/2024 8:15 AM EDT Height 170.2 cm (5' 7.01 ) 08/02/2024 8:15 AM ED T Body Mass Index 25.68 08/02/2024 8:15 AM EDT Plan of Treatment Upcoming Encounters Date Type Department Care Team (Late st Contact Info) Description 10/03/2024 8:15 AM EDT Office Visit Orthopedic Surgery - [facility] 175 [facility] [address] [place] [phone] Donny Mendes, DPM [address] [address] Health Maintenance Due Date Last Done Comments Hepatitis B Vaccines (1 of 3 - 19+ 3-dose series) 11/18/2002 Depression Screening 04/26/2022 HIV Screening 04/26/2022 Hepatitis C Screening 04/26/2022 Medicare Annual Wellness Visit 04/26/2022 Social Influencers of Health Screening 04/26/2022 COVID-19 Vaccine ( season) 2024 03/05/2022, 04/11/2021, 07/26/2020, Additional history exists Cholesterol Screening (Lipid Panel) 05/02/2029 05/02/2024 DTaP,Tdap,and Td Vaccines (3 - Td or Tdap) 05/02/2034 05/02/2024, 07/16/2019 Influenza Vaccine Completed 05/02/2024, , 04/14/2022 HIB Vaccines Aged Out No longer eligi ble based on patient's age to complete this topic HPV Vaccines Aged Out No longer eligi ble based on patient's age to complete this topic Hepatitis A Vaccines Aged Out No long er eligible based on patient's age to complete this topic IPV Vaccines Aged Out No longer eligi ble based on patient's age to complete this topic MMR Vaccines Aged Out No longer eligi ble based on patient's age to complete this topic Meningococcal ACWY Vaccine Aged Out N o longer eligible based on patient's age to complete this topic Meningococcal B Vaccine Aged Out No l onger eligible based on patient's age to complete this topic Pneumococcal Vaccine: Pediatrics (0 to 5 Years) and At-Risk Patients (6 to 64 Years) Aged Out No longer eligible based on patient's age to complete this topic RSV Immunization Patients Under 20 months Aged Out No longer eligible based on patient's age to complete this topic Varicella Vaccines Aged Out No longer eligible based on patient's age to complete this topic Procedures Procedure Name Priority Date/Time Associated Diagnosis Comments LIPID PANEL WITH REFLEX TO DIRECT LDL Routine 05/02/2024 9:49 AM EST Routine general medical examination at a health care facility Impaired fasting glucose Screening for ischemic heart disease Screening for thyroid disorder from Last 3 Months or Most Recently Relevant to Health Maintenance Results * Lipid panel with reflex to direct LDL (05/02/2024 9:49 AM EST) Cholesterol 127 0 - 200 mg/dL LAB CHEMISTRY METHOD 05/02/2024 11:47 AM EST [facility] Triglycerides 68 0 - 150 mg/dL LAB CHEMISTRY METHOD 05/02/2024 11:47 AM [facility] HDL 51 >=40 mg/dL LAB CHEMISTRY METHOD 05/02/2024 11:47 AM EST [facility] LDL Calculated 62 0 - 100 mg/dL LAB CHEMISTRY METHOD 05/02/2024 11:47 AM EST [facility] VLDL Cholesterol Dave 13.6 mg/dL LAB CHEMISTRY METHOD 05/02/2024 11:47 AM EST [facility] Non HDL Chol. (LDL+VLDL) 76 <145 mg/dL LAB CHEMISTRY METHOD 05/02/2024 11:47 AM EST [facility] Chol/HDL Ratio 2.5 0.0 - 4.4 LAB CHEMISTRY METHOD 05/02/2024 11:47 AM EST [facility] Blood Venous blood specimen / Unknown Venipuncture / Unknown 05/02/2024 9:49 AM EST 05/02/2024 9:49 AM EST us Bonilla Lutz [employer] ASSIST[employer] LAB BLOOD ORDERABLES Final Resul t [facility] [address] [place] [address], [place] [phone] from Last 3 Months or Most Recently Relevant to Health Maintenance Insurance MEDICAID - [place] MEDICARE Care Teams Yardage Caller Relationship Specialty Start Date End Date Lewis Horowitz DO [address] [place] [phone] PCP - General Internal Medicine 11/15/18
--- OUTSIDE RECORDS SUMMARY | 2024-09-05 18:52 | XMS_ITS | Clinical Summary ---
Author Organization [facility] Address [address] [place] [address] Care Team Providers Care Dampener Name Role Phone Lewis Horowitz DO Primary Care Provider [phone] Allergies No known active allergies Medications Medication Sig Dispensed Refills Start Date End Date Status benztropine (COGENTIN) 1 MG tablet Take 1 mg by mouth 2 (two) times a day. 0 Active acetaminophen (TYLENOL) 500 MG tablet Take 500 mg by mouth every 6 (six) hours as needed. 0 Active OLANZapine (ZyPREXA) 10 MG tablet Take 20 mg by mouth every night at bedtime. 0 Active polyethylene glycol (MIRALAX) packet Take 17 g by mouth daily. 0 Active clonazePAM (KLONOPIN) 0.5 MG tablet Take 0.5 mg by mouth 2 (two) times a day as needed for anxiety. 0 Active promethazine (PHENERGAN) tablet 25 mg Take 25 mg by mouth every 6 (six) hours as needed for nausea. 0 Active OXcarbazepine (TRILEPTAL) 300 MG tablet Take 600 mg by mouth 2 (two) times a day. 0 Active docusate sodium (COLACE) 100 MG capsule Take 100 mg by mouth 2 (two) times a day. 0 Active HALOPERIDOL PO Take by mouth. 0 Active clonazePAM (KLONOPIN) 0.5 MG tablet Take 0.5 mg by mouth 2 (two) times a day as needed for anxiety. 0 Active Stannous Fluoride (T-4 GEL MT) Use as directed in the mouth or throat. 0 Active haloperidol (HALDOL) 2 MG/ML oral concentrated solution 6 11/23/2018 Act sabas Active Problems No known active problems Family History Relation Name Status Comments Mother Alive Social History Tobacco Use Types Packs/Day Years Used Date Smoking Tobacco: Never Smokeless Tobacco: Never Alcohol Use Standard Drinks/Week Comments No 0 (1 standard drink = 0.6 oz pur e alcohol) Sex and Gender Information Value Date Recorded Sex Assigned at Not on file Gender Identity Not on file Sexual Orientation Not on file Last Filed Vital Signs Vital Sign Reading Time Taken Comments Blood Pressure 130/70 06/11/2021 3:54 PM EST Pulse 100 06/11/2021 3:54 PM EST Temperature 36.8 ??C (98.3 ??F) 06/11/2021 3:54 PM ES T Respiratory Rate - - Oxygen Saturation 98% 06/11/2021 3:54 PM EST Inhaled Oxygen Concentration - - Weight 73.5 kg (162 lb) 06/11/2021 3:54 PM EST Height 172.7 cm (5' 8 ) 05/12/2019 9:11 AM EST Body Mass Index 24.63 05/12/2019 9:11 AM EST Plan of Treatment Health Maintenance Due Date Last Done Comments Hepatitis B Vaccines (1 of 3 - 3-dose series) 1983 Hepatitis C Screening 1983 COVID-19 Vaccine (#1) 05/20/1984 Depression Screening 1995 Preventative Health Evaluation 11/18/2001 DTap / Tdap / Td (1 - Tdap) 11/18/2002 Influenza Vaccine (#1) 2024 Pneumococcal Vaccine Aged Out No long er eligible based on patient's age to complete this topic RSV Ped < 20 months Aged Out No longe r eligible based on patient's age to complete this topic Care Teams Dampener Relationship Specialty Start Date End Date Lewis Horowitz DO [address] [place] [phone] PCP - General Internal Medicine 11/15/18
== END 2024-09-05 16:05 | disposition home or self-care (01) ==
LOC: HO.HKA 15:59
PROVIDERS: PCP Internal Medicine; Visit Provider Internal Medicine Hypertension Specialist
DX: E22.2 Syndrome of inappropriate secretion of antidiuretic hormone (principal)
CPT/HCPCS: 99214

== ENCOUNTER → 2024-09-05 15:59 | Outpatient (BNVA) | payer MEDICARE, MEDICAID, SELFPAY | PROVIDERS: PCP Internal Medicine; Visit Provider Internal Medicine Hypertension Specialist | DX: E22.2 Syndrome of inappropriate secretion of antidiuretic hormone (principal) | CPT/HCPCS: 99212 ==

== ENCOUNTER 2025-02-27 11:10 | Outpatient (AMB) | payer MEDICARE, MEDICAID, SELFPAY ==
[2025-02-27 11:14] VITALS: BP 110/78; PULSE 77; O2SAT 97
--- NOTE | 2025-02-27 11:14 | HO.NEPHOV_ITS ---
Vital Signs 02/27/25 11:14 Height 5 ft 9 in BP 110/78 Blood Pressure Location Rt brachial Position Sitting Pulse 77 Pulse Source Pulse Oximeter Pulse Oximetry (%) 97 Oxygen Delivery Method Room Air Intake Visit Reasons: 6 MO FU, confirmed Internet Salesperson Required: No Accompanied by: Supervisor Meter Shop Allergies No Known Allergies Allergy (Verified 02/27/25 11:15) Medication List - Last Reconciled 02/27/25 by Washington Heath MD acetaminophen (Tylenol Extra Strength) 1,000 mg PO Q6H PRN benztropine 1 mg PO BID clonazepam 0.5 mg PO DAILY PRN docusate sodium (Colace) 200 mg PO BEDTIME guaifenesin 200 mg PO Q6H PRN haloperidol lactate 2 mg PO DAILY@1600 haloperidol lactate 4 mg PO BID olanzapine 20 mg PO BID oxcarbazepine 600 mg PO BID HPI Comments Details: 37-year-old male with pertinent history of schizophrenia, autistic disorder, personality disorder, generalized anxiety disorder has been referred due to hyponatremia. He was hospitalized with hyponatremia. Serum sodium was 124 which has gradually gotten to 130 and he was discharged. Recent sodium was around 129 to 130 millimoles. He was accompanied by his caregiver 02/27/25 - The patient is a 39-year-old male presenting with hyponatremia. - Regular follow-ups for low sodium levels every six months. - Current medications include Lopetal, Cogentin, Zyprexa, Klonopin, and Trileptal. - Last blood test was six months ago; follow-up planned. - Advised to monitor water intake to manage hyponatremia. [facility] Medical History Impulsive personality disorder Anxiety Autism Schizophrenia Social History Household Members: Other Household Members Other:: assisted Housing: Other Housing Other:: assisted Patient Tobacco Use Status: Never used Tobacco service: No Physical Exam Vital Signs: Last Vital Signs Pulse 77 02/27/25 11:14 BP 110/78 02/27/25 11:14 Pulse Ox 97 02/27/25 11:14 Oxygen Delivery Method Room Air 02/27/25 11:14 Flat affect. Does not verbalize. Neck is supple no JVD. Lungs clear. Heart S1-S2 heard no gallop. Abdomen soft nontender. Neuro alert and awake. No asterixis. Extremities no edema. Results Reviewed Nephrology Results: Hgb, (14.0-18.0) 12.5 g/dl L 05/16/23 WBC, (4.8-10.8) 3.7 X10*3/uL L 05/16/23 Plt Count, (160-400) 220 X10*3/uL 05/16/23 Sodium, (135-145) 130 mmol/L L Today Potassium, (3.3-5.1) 4.4 mmol/L Today Chloride, (96-108) 97 mmol/L Today Carbon Dioxide, (22-29) 28 mmol/L Today BUN, (9-16) 13 mg/dL Today Creatinine, (0.5-1.4) 0.71 mg/dL Today Calcium, (8.4-10.2) 9.0 mg/dL Today Urine Protein, (Neg-Trace) Negative mg/dL 05/14/23 Assessment & Plan Assessment & Plan (1) Syndrome of inappropriate antidiuretic hormone secretion: Code(s): E22.2 - Syndrome of inappropriate secretion of antidiuretic hormone Category: Medical Plan: Most likely due to medications. Goal is to maintain serum sodium by more than 130 millimoles. Keep on oral free water restriction of 1 L per 24 hours. If serum sodium drops less than 130 millimoles I would consider adding urea powder 15 g p.o. b.i.d.. Monitor serum sodium every month for the next 6 months Orders: Orders Basic Metabolic Panel Today E87.1 - Hypo-osmolality and hyponatremia Coding Level of Care Code Est Pt Level 4 (08059) Diagnoses Syndrome of inappropriate antidiuretic hormone secretion E22.2
--- OUTSIDE RECORDS SUMMARY | 2025-02-27 13:56 | XMS_ITS | Clinical Summary ---
Author Organization [facility] Address [address] [place] [address] Care Team Providers Care Art Objects Salesperson Name Role Phone Lewis Horowitz DO Primary Care Provider [phone] Allergies No known active allergies Medications Medication [...] 100 06/11/2021 3:54 PM EST Temperature 36.8 C (98.3 F) 06/11/2021 3:54 PM EST Respiratory Rate - - Oxygen Saturation 98% [...] (1 - Tdap) 11/18/2002 Influenza Vaccine (#1) 2025 Pneumococcal Vaccine Aged Out No long er eligible based on patient's age to complete this topic RSV Ped < 20 months Aged Out No longe r eligible based on patient's age to complete this topic Care Teams Art Objects Salesperson Relationship Specialty Start Date End Date Lewis Horowitz DO [address] [place] [phone] PCP - General Internal Medicine 11/15/18
--- OUTSIDE RECORDS SUMMARY | 2025-02-27 13:56 | XMS_ITS | Clinical Summary ---
Author Organization [address] Address [address] [place] [phone] Phone Care Team Providers Care Abrasive Worker Name Role Phone Lewis Horowitz DO Primary Care Provider [phone] Allergies No known active allergies Medications No known medications Encounters Date Type Department Care Team Description 01/04/2025 8:15 AM EDT Office Visit Orthopedic Surgery - [place] [address] [place] [phone] Donny Mendes, DPJohn Ingrowing nail (Primary Dx); Hammer toe of left foot; Acquired hammer toe of right foot from Last 3 Months Surgical History Surgery Date Site/Laterality Comments OTHER SURGICAL HISTORY PROCEDURE:TREATMENT FISTULA ANAL;COMMENT:Several years ago - exact date not known Medical History Medical History Date Comments Schizophrenia, chronic condi tion ([facility] V24, [facility] V28) DX:Schizophrenia, chronic co ndition ([facility]) Hemorrhoids DX:Hemorrhoids Anemia DX:Anemia Constipation [...] Concentration - - Weight 74.4 kg (164 lb 0.4 oz) 01/04/2025 7:59 A M EDT Height 170.2 cm (5' 7.01 ) 01/04/2025 7:59 AM ED T Body Mass Index 25.68 01/04/2025 7:59 AM EDT Plan of Treatment Upcoming Encounters Date Type Department Care Team (Late st Contact Info) Description 04/09/2025 8:15 AM EST Office Visit Orthopedic Surgery - [place] [address] [phone] Donny Mnedes, DPM [address] [phone] Health Maintenance Due Date Last Done Comments Hepatitis B Vaccines (1 of 3 - 19+ 3-dose series) 11/18/2002 HPV Vaccines (1 - 3-dose SCDM series) 11/18/2010 HIV Screening 04/26/2022 Hepatitis C Screening 04/26/2022 Medicare Annual Wellness Visit 04/26/2022 Social Influencers of Health Screening 04/26/2022 Depression Screening 05/24/2024 COVID-19 Vaccine ( season) 2025 03/05/2022, 04/11/2021, 07/26/2020, Additional history exists Influenza Vaccine (#1) 2025 , 04/27/2023, 04/14/2022 Cholesterol Screening (Lipid Panel) 12/20/2029 12/20/2024, 05/02/2024 DTaP,Tdap,and Td Vaccines (3 - Td or Tdap) 05/02/2034 05/02/2024, 07/16/2019 RSV Immunization Adult Patients (1 - 1-dose 75+ series) 11/18/2058 HIB Vaccines Aged Out No longer eligi [...] 5 Years) and At-Risk Patients (6 to 49 Years) Aged Out No longer eligible based on patient's age to complete this topic RSV Immunization Patients Under 20 months Aged Out No longer eligible based on patient's age to complete this topic Varicella Vaccines Aged Out No longer eligible based on patient's age to complete this topic Procedures Procedure Name Priority Date/Time Associated Diagnosis Comments CBC WITH AUTO DIFFERENTIAL Routine 12/20/2024 7:47 AM EDT Schizophrenia (CMS/HCC V24, CMS/HCC V28) SIADH (syndrome of inappropriate ADH production) (CMS/HCC V24) Macrocytic anemia VITAMIN B12 Routine 12/20/2024 7:47 AM EDT Schizophrenia (CMS/HCC V24, CMS/HCC V28) SIADH (syndrome of inappropriate ADH production) (CMS/HCC V24) Macrocytic anemia FOLATE Routine 12/20/2024 7:47 AM EDT Schizophrenia (CMS/HCC V24, CMS/HCC V28) SIADH (syndrome of inappropriate ADH production) (CMS/HCC V24) Macrocytic anemia CBC AND DIFFERENTIAL Routine 12/20/2024 7:47 AM EDT Schizophrenia (CMS/HCC V24, CMS/HCC V28) SIADH (syndrome of inappropriate ADH production) (CMS/HCC V24) Macrocytic anemia THYROID STIMULATING HORMONE Routine 12/20/2024 7:47 AM EDT Schizophrenia (CMS/HCC V24, CMS/HCC V28) SIADH (syndrome of inappropriate ADH production) (CMS/HCC V24) Macrocytic anemia BASIC METABOLIC PANEL Routine 12/20/2024 7:47 AM EDT Schizophrenia (CMS/HCC V24, CMS/HCC V28) SIADH (syndrome of inappropriate ADH production) (CMS/HCC V24) Macrocytic anemia ALANINE AMINOTRANSFERASE Routine 12/20/2024 7:47 AM EDT Schizophrenia (CMS/HCC V24, CMS/HCC V28) SIADH (syndrome of inappropriate ADH production) (CMS/HCC V24) Macrocytic anemia ASPARTATE AMINOTRANSFERASE Routine 12/20/2024 7:47 AM EDT Schizophrenia (CMS/HCC V24, CMS/HCC V28) SIADH (syndrome of inappropriate ADH production) ([facility] V24) Macrocytic anemia LIPID PANEL WITH REFLEX TO DIRECT LDL Routine 12/20/2024 7:47 AM EDT Schizophrenia (CMS/HCC V24, [facility]/HCC V28) SIADH (syndrome of inappropriate ADH production) ([facility] V24) Macrocytic anemia Abnormal finding of blood chemistry, unspecified from Last 3 Months Results * Lipid panel with reflex to direct LDL (12/20/2024 7:47 AM EDT) Cholesterol 116 0 - 200 mg/dL LAB CHEMISTRY METHOD 12/20/2024 12:10 PM EDT [facility] Triglycerides 69 0 - 150 mg/dL LAB CHEMISTRY METHOD 12/20/2024 12:10 PM EDT [facility] HDL 51 >=40 mg/dL LAB CHEMISTRY METHOD 12/20/2024 12:10 PM EDT [facility] LDL Calculated 51 0 - 100 mg/dL LAB CHEMISTRY METHOD 12/20/2024 12:10 PM EDT [facility] VLDL Cholesterol Dave 13.8 mg/dL LAB CHEMISTRY METHOD 12/20/2024 12:10 PM EDT [facility] Non HDL Chol. (LDL+VLDL) 65 <145 mg/dL LAB CHEMISTRY METHOD 12/20/2024 12:10 PM EDT [facility] Chol/HDL Ratio 2.3 0.0 - 4.4 LAB CHEMISTRY METHOD 12/20/2024 12:10 PM EDT [facility] Blood Venous blood specimen / Unknown Venipuncture / Unknown 12/20/2024 7:47 AM EDT 12/20/2024 7:47 AM EDT us Bonilla Lutz [employer] LAB BLOOD ORDERABLES Final Resul t [facility] [address] [place] [address], * (ABNORMAL) CBC auto differential (12/20/2024 7:47 AM EDT) WBC 3.2(L) 4.8 - 10.8 K/mcL LAB HEMETOLOGY METHOD 12/20/2024 11:33 AM EDT [facility] RBC 3.50(L) 4.50 - 5.50 M/mcL LAB HEMETOLOGY METHOD 12/20/2024 11:33 AM EDT [facility] Hemoglobin 12.3(L) 13.5 - 17.5 g/dL LAB HEMETOLOGY METHOD 12/20/2024 11:33 AM EDT [facility] Hematocrit 34.3(L) 42.0 - 54.0 % LAB HEMETOLOGY METHOD 12/20/2024 11:33 AM EDT [facility] MCV 98.0 79.0 - 98.0 FL LAB HEMETOLOGY METHOD 12/20/2024 11:33 AM EDT [facility] MCH 35.1(H) 27.0 - 32.0 pcg LAB HEMETOLOGY METHOD 12/20/2024 11:33 AM EDT [facility] MCHC 35.9 32.0 - 37.0 g/dL LAB HEMETOLOGY METHOD 12/20/2024 11:33 AM EDT [facility] RDW 11.1 11.0 - 15.0 % LAB HEMETOLOGY METHOD 12/20/2024 11:33 AM EDT [facility] Platelets 248 130 - 400 K/mcL LAB HEMETOLOGY METHOD 12/20/2024 11:33 AM EDT [facility] MPV 9.0 7.0 - 11.0 FL LAB HEMETOLOGY METHOD 12/20/2024 11:33 AM EDT [facility] NRBC 0.0 <1.0 % LAB HEMETOLOGY METHOD 12/20/2024 11:33 AM [facility] NRBC Absolute 0.00 <0.10 K/mcL LAB HEMETOLOGY METHOD 12/20/2024 11:33 AM [facility] Neutrophils Relative 72.0 % LAB HEMETOLOGY METHOD 12/20/2024 11:33 AM [facility] Lymphocytes Relative 17.9 % LAB HEMETOLOGY METHOD 12/20/2024 11:33 AM [facility] Monocytes Relative 8.2 % LAB HEMETOLOGY METHOD 12/20/2024 11:33 AM [facility] Eosinophils Relative 1.3 % LAB HEMETOLOGY METHOD 12/20/2024 11:33 AM [facility] Basophils Relative 0.3 % LAB HEMETOLOGY METHOD 12/20/2024 11:33 AM [facility] Immature Granulocytes Relative 0.3 % LAB HEMETOLOGY METHOD 12/20/2024 11:33 AM [facility] Neutrophils Absolute 2.30 1.50 - 7.00 K/mcL LAB HEMETOLOGY METHOD 12/20/2024 11:33 AM [facility] Lymphocytes Absolute 0.57(L) 1.00 - 5.00 K/mcL LAB HEMETOLOGY METHOD 12/20/2024 11:33 AM [facility] Monocytes Absolute 0.26 0.20 - 1.00 K/mcL LAB HEMETOLOGY METHOD 12/20/2024 11:33 AM [facility] Eosinophils Absolute 0.04 0.00 - 0.50 K/mcL LAB HEMETOLOGY METHOD 12/20/2024 11:33 AM [facility] Basophils Absolute 0.01 0.00 - 0.20 K/mcL LAB HEMETOLOGY METHOD 12/20/2024 11:33 AM EDT [facility] Immature Granulocytes Absolute 0.01 0.00 - 0.03 K/mcL LAB HEMETOLOGY METHOD 12/20/2024 11:33 AM EDT [facility] Blood Venous blood specimen / Unknown Venipuncture / Unknown 12/20/2024 7:47 AM EDT 12/20/2024 7:47 AM EDT Bonilla [facility] [employer]NAGER LAB BLOOD ORDERABLES Final Resul t Performing Organization Address City/[facility] Co de Phone Number [facility] [address] [place] [address], [place] [phone] * Alanine aminotransferase (12/20/2024 7:47 AM EDT) ALT (SGPT) 45 10 - 60 unit/L LAB CHEMISTRY METHOD 12/20/2024 11:31 AM EDT [facility] Blood Venous blood specimen / Unknown Venipuncture / Unknown 12/20/2024 7:47 AM EDT 12/20/2024 7:47 AM EDT Irene Lutz LAB BLOOD ORDERABLES Final Resul t Performing Organization Address [facility] de Phone Number [facility] [address] [place] [address], [place] [phone] * Aspartate aminotransferase (12/20/2024 7:47 AM EDT) AST (SGOT) 22 10 - 42 unit/L LAB CHEMISTRY METHOD 12/20/2024 12:10 PM EDT [facility] Blood Venous blood specimen / Unknown Venipuncture / Unknown 12/20/2024 7:47 AM EDT 12/20/2024 7:47 AM EDT Irene Lutz [employer] MA[employer] LAB BLOOD ORDERABLES Final Resul t [facility] [address] [place] [address], [place] [phone] * Thyroid stimulating hormone (12/20/2024 7:47 AM EDT) Pathologist [facility] TSH 1.33 0.40 - 4.00 mcIU/mL LAB CHEMISTRY METHOD 12/20/2024 1:30 PM EDT [facility] Blood Venous blood specimen / Unknown Venipuncture / Unknown 12/20/2024 7:47 AM EDT 12/20/2024 7:47 AM EDT us Irene Lutz LAB BLOOD ORDERABLES Final Resul t Performing Organization Address City/[facility]/ZIP Co de Phone Number [facility] [address] [place] [address], [place] [phone] * Folate (12/20/2024 7:47 AM EDT) [facility] Folate 8.7 2.8 - 17.0 ng/ml LAB CHEMISTRY METHOD 12/20/2024 12:10 PM EDT [facility] Blood Venous blood specimen / Unknown Venipuncture / Unknown 12/20/2024 7:47 AM EDT 12/20/2024 7:47 AM EDT us Irene Lutz [employer]JECT MANAGER LAB BLOOD ORDERABLES Final Resul t [facility] [address] [place] [address], [place] [phone] * Vitamin B12 (12/20/2024 7:47 AM EDT) Pathologist [facility] Vitamin B-12 488 250 - 900 pcg/mL LAB CHEMISTRY METHOD 12/20/2024 12:10 PM EDT [facility] Blood Venous blood specimen / Unknown Venipuncture / Unknown 12/20/2024 7:47 AM EDT 12/20/2024 7:47 AM EDT us Bonilla Lutz [employer] MANAGER LAB BLOOD ORDERABLES Final Resul t [facility] [address] [place] [address], * (ABNORMAL) Basic metabolic panel (12/20/2024 7:47 AM EDT) Sodium 126(L) 133 - 145 mmol/L LAB CHEMISTRY METHOD 12/20/2024 12:10 PM [facility] Potassium 4.2 3.5 - 5.5 mmol/L LAB CHEMISTRY METHOD 12/20/2024 12:10 PM [facility] Chloride 95(L) 96 - 110 mmol/L LAB CHEMISTRY METHOD 12/20/2024 12:10 PM [facility] CO2 24 21 - 32 mmol/L LAB CHEMISTRY METHOD 12/20/2024 12:10 PM [facility] Anion Gap 7 3 - 11 LAB CHEMISTRY METHOD 12/20/2024 12:10 PM [facility] Glucose 102(H) 70 - 100 mg/dL LAB CHEMISTRY METHOD 12/20/2024 12:10 PM [facility] BUN 11 5 - 25 mg/dL LAB CHEMISTRY METHOD 12/20/2024 12:10 PM [facility] Creatinine 0.74 0.70 - 1.30 mg/dL LAB CHEMISTRY METHOD 12/20/2024 12:10 PM [facility] eGFR 117 >=60 mL/min/1. 73m2 LAB CHEMISTRY METHOD 12/20/2024 12:10 PM [facility] Comment:Calculation based on the Chronic Kidney Disease Epidemiology Collaboration (CKD-EPI) equation refit without adjustment for race. BUN/Creatinine Ratio 14.9 LAB CHEMISTRY METHOD 12/20/2024 12:10 PM EDT [facility] Calcium 8.8 8.5 - 10.5 mg/dL LAB CHEMISTRY METHOD 12/20/2024 12:10 PM EDT [facility] ([facility]) [facility] Blood Venous blood specimen / Unknown Venipuncture / Unknown 12/20/2024 7:47 AM EDT 12/20/2024 7:47 AM EDT us Bonilla Lutz [employer] MANAGER LAB BLOOD ORDERABLES Final Resul t [facility] ([facility]) [facility] [address] [place] [address], [place] [phone] from Last 3 Months Insurance MEDICAID - [place] MEDICARE Care Teams Abrasive Worker Relationship Specialty Start Date End Date Lewis Horowitz DO [address] [place] [phone] PCP - General Internal Medicine 11/15/18
== END 2025-02-27 11:28 | disposition home or self-care (01) ==
PROVIDERS: PCP Internal Medicine; Visit Provider Internal Medicine Hypertension Specialist
DX: E22.2 Syndrome of inappropriate secretion of antidiuretic hormone (principal)
CPT/HCPCS: 99214

== ENCOUNTER → 2025-02-27 11:10 | Outpatient (BNVA) | payer MEDICARE, MEDICAID, SELFPAY | PROVIDERS: PCP Internal Medicine; Visit Provider Internal Medicine Hypertension Specialist | DX: E22.2 Syndrome of inappropriate secretion of antidiuretic hormone (principal) | CPT/HCPCS: 99212 ==

== ENCOUNTER 2025-02-27 11:46 | Outpatient (REF) | payer MEDICARE, MEDICAID, SELFPAY ==
[2025-02-27 13:36] LABS: Anion Gap 9 (12-20); Blood Urea Nitrogen 13 mg/dL (9-16); Calcium 9.0 mg/dL (8.4-10.2); Carbon Dioxide 28 mmol/L (22-29); Chloride 97 mmol/L (96-108); Estimated Glomerular Filt Rate > 60; Potassium 4.4 mmol/L (3.3-5.1); Sodium 130 mmol/L (135-145)
== END 2025-02-27 11:47 | disposition home or self-care (01) ==
LOC: HO.10HDL 11:46
PROVIDERS: Visit Provider Internal Medicine Hypertension Specialist
DX: E87.1 Hypo-osmolality and hyponatremia (principal)
CPT/HCPCS: 36415; 80048